=== PATIENT | male | born 1950 | race Caucasian/White ===

== ENCOUNTER 2018-02-07 10:34 | Emergency (ER) | payer MEDICARE ==
[2018-02-07] MEDS ORDERED: Bupivacaine 0.5% 30 ML SDV INFILT ONE (10:35)
[2018-02-07] MEDS ORDERED: Bacitracin/Neomycin/Polymyxin B Oint 0.9 GM U/D Packet TOP ONE (10:55)
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
[2018-02-07] MEDS ORDERED: Diphtheria,Pertussis(Acell),Tetanus Vaccine 0.5 ML SDV IM ONE (11:44)
[2018-02-07] MEDS ORDERED: Diphtheria,Pertussis(Acell),Tetanus Vaccine 0.5 ML SDV ONE (11:45)
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
== END 2018-02-07 12:05 | disposition home or self-care (01) ==
LOC: FB.ED 10:34
DX: S06.9X9A Unspecified intracranial injury with loss of consciousness of unspecified duration, initial encounter (principal); S01.01XA Laceration without foreign body of scalp, initial encounter; I10 Essential (primary) hypertension; E10.9 Type 1 diabetes mellitus without complications; Z79.82 Long term (current) use of aspirin; Z23 Encounter for immunization; W22.8XXA Striking against or struck by other objects, initial encounter
CPT/HCPCS: 12001; 70450; 82962; 90471; 90715; 99283

== ENCOUNTER 2024-03-23 08:12 | Day surgery (SDC) | payer MEDICARE ==
[2024-03-23] MEDS ORDERED: Lidocaine 2% 100 MG/5 ML Syringe IVPUSH ONE (08:13)
[2024-03-23] MEDS ORDERED: Midazolam 1 MG/ML 2 ML SDV IV ONE (08:13)
[2024-03-23] MEDS ORDERED: Propofol 200 MG/20 ML SDV IV ONE (08:13)
[2024-03-23] MEDS ORDERED: Lidocaine 2% Viscous Solution 15 ML UD PO ONE (08:13)
[2024-03-23] MEDS ORDERED: Lactated Ringers 1,000 ML IV SCH (08:15)
[2024-03-23] MEDS ORDERED: Sodium Chloride 0.9% 10 ML Syringe FLUSH PRN (08:15)
[2024-03-23] MEDS: Simethicone Drops 40 MG/0.6 ML 30 ML Bottle ONE (10:26)
== END 2024-03-23 11:55 | disposition home or self-care (01) ==
LOC: FB.SDS 08:12
PROVIDERS: ATTEND Surgery
DX: K29.50 Unspecified chronic gastritis without bleeding (principal); K29.80 Duodenitis without bleeding; K70.31 Alcoholic cirrhosis of liver with ascites; I85.10 Secondary esophageal varices without bleeding; D50.9 Iron deficiency anemia, unspecified; K44.9 Diaphragmatic hernia without obstruction or gangrene; E11.9 Type 2 diabetes mellitus without complications; Z79.899 Other long term (current) drug therapy
CPT/HCPCS: 00731; 43239; 43251; 88305; 88342; 99100; A9270; J2250; J2704